=== PATIENT | male | born 1945 | race Caucasian/White ===

== ENCOUNTER 2020-02-17 09:47 | Outpatient (CLI) | payer MEDICARE ==
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
== END 2020-02-17 09:48 | disposition home or self-care (01) ==
LOC: TBSIIMAG 09:47
PROVIDERS: ATTEND Neurological Surgery
DX: M54.9 Dorsalgia, unspecified (principal); M47.816 Spondylosis without myelopathy or radiculopathy, lumbar region; M41.86 Other forms of scoliosis, lumbar region; R29.890 Loss of height; S32.051D Stable burst fracture of fifth lumbar vertebra, subsequent encounter for fracture with routine healing; Z95.828 Presence of other vascular implants and grafts
CPT/HCPCS: 72100

== ENCOUNTER 2020-02-21 08:17 | Outpatient (CLI) | payer MEDICARE, OTHER ==
[2020-02-22 12:26] LABS: SARS-CoV-2 MS2 Positive; SARS-CoV-2 N Gene Negative; SARS-CoV-2 S Gene Negative; SARS-CoV-2 by NAA Not Detected (NotDetected); SARS-CoV-2 orf1ab Negative
== END 2020-02-21 08:18 | disposition home or self-care (01) ==
LOC: LABBT 08:17
PROVIDERS: ATTEND Thoracic Surgery (Cardiothoracic Vascular Surgery)
DX: Z20.828 Contact with and (suspected) exposure to other viral communicable diseases (principal); T45.515A Adverse effect of anticoagulants, initial encounter
CPT/HCPCS: 87635; U0003

== ENCOUNTER 2020-02-25 05:43 | Day surgery (SDC) | payer MEDICARE ==
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
[2020-02-23 14:26] VITALS: BMI 25.1
[2020-02-25] MEDS ORDERED: Midazolam HCl 2 mg/2 ml Vial ONE (07:04)
[2020-02-25] MEDS ORDERED: Fentanyl 100 MCG/2 ML VIAL ONE (07:04)
[2020-02-25] MEDS ORDERED: Heparin 10,000 UNITS/ 10 ML VIAL ONE (08:51)
[2020-02-25] MEDS ORDERED: Iopamidol 370 76% 50 ML VIAL FS ONE (11:16)
--- NOTE | 2020-02-25 12:38 | OP ---
DATE OF PROCEDURE: 02/25/2020 PREOPERATIVE DIAGNOSIS: Desire for removal of temporary Cook Celect vena cava filter. POSTOPERATIVE DIAGNOSES: Desire for removal of temporary Cook Celect vena cava filter. Trapped filter snare. PROCEDURES PERFORMED: 1. Ultrasound-guided right jugular access. 2. Inferior vena cavogram. 3. Long attempt at removal of filter with ultimate entrapment of snare in the filter mechanism. ANESTHESIA: 1% lidocaine for local, 50 mcg fentanyl, 2 mg Versed for sedation and pain control. ESTIMATED BLOOD LOSS: Approximately 100. TOTAL FLUORO TIME: 52.7 minutes. CONTRAST: 40 mL. DESCRIPTION OF PROCEDURE: After consent was obtained, the patient was brought to the bobcat driver/labor, placed in supine position on bobcat driver/labor table. Appropriate central line and monitors were placed. At this time, the patient was given sedation. Right neck was prepped and draped in usual sterile fashion. The skin and subcutaneous tissues were anesthetized under ultrasound guidance. Using ultrasound guidance, the percutaneous access to the jugular vein was obtained. A 6-Monegasque sheath was placed. Angled glide catheter and Bentson wire were passed down inferior to the filter and hand-injected venacavogram performed, showing normal vena cava appearance with no thrombus. The sheath was removed and the tract upsized to the 12-Monegasque Cook sheath. Using the Cook snare, multiple attempts at snaring the catheter were performed, eventually passing what I felt to be the snare around the tip of the catheter and it became entrapped. This may have actually passed down underneath one of the free limbs and become entrapped. I could not get the catheter loose. I buddied a second snare and I was unable to snare the tip of the filter. After discussion with Dr. Segura in Interventional Radiology at [facility], he suggested we transfer the patient to [place] and I spoke with Dr. Ronnie Begum, who has accepted the patient and agreed to attempt to remove the filter with more advanced techniques than I have available. The catheters were sterilely bundled with the sheath in place. The patient will be transferred via ambulance to [place]. Job ID: [id number]
== END 2020-02-25 10:15 | disposition critical access hospital (66) ==
LOC: CCL 05:43
PROVIDERS: ATTEND Thoracic Surgery (Cardiothoracic Vascular Surgery)
PROC: 06PY3DZ Removal of Intraluminal Device from Lower Vein, Percutaneous Approach (ICD-10-PCS; principal; 2020-02-25)
DX: Z45.89 Encounter for adjustment and management of other implanted devices (principal); I10 Essential (primary) hypertension; E11.9 Type 2 diabetes mellitus without complications; F03.90 Unspecified dementia, unspecified severity, without behavioral disturbance, psychotic disturbance, mood disturbance, and anxiety; J44.9 Chronic obstructive pulmonary disease, unspecified; Z77.098 Contact with and (suspected) exposure to other hazardous, chiefly nonmedicinal, chemicals; Z79.82 Long term (current) use of aspirin; Z79.899 Other long term (current) drug therapy; Z88.0 Allergy status to penicillin; Z88.1 Allergy status to other antibiotic agents; Z88.2 Allergy status to sulfonamides; Z88.5 Allergy status to narcotic agent
CPT/HCPCS: 37193; 76942; 99152; 99153; J1644; J2250; J3010

== ENCOUNTER 2020-03-22 12:37 | Outpatient (CLI) | payer MEDICARE ==
--- NOTE | 2020-03-22 14:25 | RAD ---
XR Lumbar Spine 2 Or 3 View History: Closed compression fracture Comparison: Radiograph February 17, 2020 Findings: Similar appearance complete breast fracture of L5 with retropulsion. Minimal height loss of the anterior superior T12 endplate. No IVC filter is appreciated. Paraspinal soft tissues are unremarkable. Impression: No progressive L5 burst fracture height loss.
== END 2020-03-22 12:38 | disposition home or self-care (01) ==
LOC: TBSIIMAG 12:37
PROVIDERS: ATTEND Neurological Surgery
DX: M48.56XA Collapsed vertebra, not elsewhere classified, lumbar region, initial encounter for fracture (principal)
CPT/HCPCS: 72100

== ENCOUNTER 2020-04-17 12:15 | Outpatient (CLI) | payer MEDICARE ==
--- NOTE | 2020-04-17 13:23 | CT ---
Exam: Lumbar spine CT without contrast HISTORY: Follow-up lumbar spine fracture. COMPARISON: Chest/abdomen/pelvis CT 01/14/2020. FINDINGS: Limited evaluation of the solid organs and paraspinal muscles as well as the alimentary canal by the lack of contrast and due to motion degradation. Grossly no abnormality. There are some nonspecific right lower quadrant mesenteric lymph nodes. Atherosclerosis of a nonaneurysmal aorta is identified. No evidence of obstructive uropathy. Nonobstructing calculus in the left renal pelvis. Once again there are 5 lumbar type vertebra. From L1 to L4, vertebral body heights are maintained. No fracture. There is progression of loss of vertebral body height at L5 with essentially vertebral plana. There is retropulsion of the L5 vertebral body. There is moderate to severe severe central can al stenosis at L5. There is bilateral facet hypertrophy. Moderate to severe bilateral neural foraminal narrowing. Limited evaluation the contents of the central spinal canal and neural foramina due to technique. L2-L3: Vacuum disc phenomenon. Mild central canal stenosis. Mild bilateral neural foraminal narrowing . L3-L4: Broad-based disc bulge abuts the thecal sac. Mild central canal stenosis. Mild bilateral neura l foraminal narrowing. L4-L5: Broad-based disc bulge, ligamentum flavum thickening and facet hypertrophy. Moderate central c anal stenosis. Moderate to severe bilateral neural foraminal narrowing. L5-S1: Broad-based disc bulge. No significant central canal stenosis. Moderate to severe bilateral neural foraminal narrowing. IMPRESSION: 1. Progression of loss of vertebral body height at L5. There is essentially vertebral plana. Retropul deirdre with moderate to severe central canal stenosis. 2. Multilevel degenerative changes of the lumbar spine as described above. Transcribed Date/Time: 04/17/2020 1:36 PM
== END 2020-04-17 12:16 | disposition home or self-care (01) ==
LOC: SCSCT 12:15
PROVIDERS: ATTEND Neurological Surgery
DX: S22.008A Other fracture of unspecified thoracic vertebra, initial encounter for closed fracture (principal); M47.816 Spondylosis without myelopathy or radiculopathy, lumbar region; M48.061 Spinal stenosis, lumbar region without neurogenic claudication
CPT/HCPCS: 72131

== ENCOUNTER 2020-05-22 12:15 | Outpatient (CLI) | payer MEDICARE ==
--- NOTE | 2020-05-22 13:52 | RAD ---
LUMBAR SPINE RADIOGRAPHS: Date: 05/22/2020 PROVIDED CLINICAL HISTORY: Fracture. FINDINGS: Comparison with 03/22/2020. Five non-rib bearing lumbar-type vertebral bodies are demonstrated. Burst fracture of L5 is again see n. Vertebral body heights appear otherwise preserved. Lumbar disc and facet degenerative changes appe ar similar. Vascular calcification is again seen. Lumbar alignment appears unchanged. IMPRESSION: Redemonstration of L5 burst fracture, similar to prior. POS: YISSEL
== END 2020-05-22 12:16 | disposition home or self-care (01) ==
LOC: SCSRAD 12:15
PROVIDERS: ATTEND Oral & Maxillofacial Surgery
DX: M54.5 Low back pain (principal); S32.051A Stable burst fracture of fifth lumbar vertebra, initial encounter for closed fracture
CPT/HCPCS: 72100

== ENCOUNTER 2020-06-26 12:53 | Outpatient (CLI) | payer MEDICARE ==
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
== END 2020-06-26 12:54 | disposition home or self-care (01) ==
LOC: SCSRAD 12:53
PROVIDERS: ATTEND Neurological Surgery
DX: S22.008A Other fracture of unspecified thoracic vertebra, initial encounter for closed fracture (principal); S32.051A Stable burst fracture of fifth lumbar vertebra, initial encounter for closed fracture; R29.890 Loss of height
CPT/HCPCS: 72100